=== PATIENT | female | born 1980 | race African-American/Black ===

== ENCOUNTER 2016-07-05 17:50 | Emergency (ER) | payer SELFPAY ==
[~2016-07-05] VITALS: Ht 160 cm; Wt 52.0 kg
[2016-07-05] MEDS ORDERED: HYDROCODONE/ACETAMINOPHEN 5/325MG TABLET PO ONE (19:30)
[2016-07-05] MEDS ORDERED: MORPHINE SULFATE 10 MG/ML CPJ IM ONE (22:00)
[2016-07-05] MEDS ORDERED: ONDANSETRON 4MG ODT PO ONE (22:00)
[2016-07-06 00:25] VITALS: BP 103/66
== END 2016-07-06 00:30 | disposition home or self-care (01) ==
LOC: ER 17:52
DX: S42.391A Other fracture of shaft of right humerus, initial encounter for closed fracture (principal); W06.XXXA Fall from bed, initial encounter; Y92.013 Bedroom of single-family (private) house as the place of occurrence of the external cause
CPT/HCPCS: 29105; 73060; 73070; 73090; 81025; 96372; 99284; J2270; Q0162; A4565